=== PATIENT | male | born 1980 | race Caucasian/White ===

== ENCOUNTER 2016-04-20 20:19 | Emergency (ER) | payer OTHER ==
--- NOTE | 2016-04-20 21:47 | ED CLINICAL REPORT ---
Clinical Report - Physicians/Mid Levels [facility] [address] [place] [address] 04/20/2016 20:26 Patient: SELAM MENDES Time Seen: 20:45; upon arrival, initial patient contact, initial documentation, patient care assumed. Arrived- By private vehicle. Historian- patient. HISTORY OF PRESENT ILLNESS Chief Complaint: FOREIGN BODY IN NOSE. Since about 4 months ago or longer and is still present. Location- right nare. No epistaxis, nasal congestion or recent nasal injury. He has a foreign body in the nose. He has had a blood tinged nasal discharge (black). (thinks something got into his nose over 4 mos ago, been sticking a variety of objects into nose attempting to get it out, x2 wks ago blew out black stuff with blood, denies any injury or trauma). Similar symptoms previously: None. Recent medical care: Not recently seen/assessed. REVIEW OF SYSTEMS No fever or difficulty breathing. All systems otherwise negative, except as recorded above. PAST HISTORY See nurses notes. PROBLEMS: Paranoid disorder. Hypertension. Anxiety Reaction. --20:35 Kelvin Flores R.N. ADDITIONAL SURGERIES: Collapsed lung. --20:35 Kelvin Flores R.N. SOCIAL HISTORY Heavy tobacco smoker. Regular alcohol use; consumes beer. History of heavy drug use: marijuana. No recent travel. Is a local resident. FAMILY HISTORY Negative. ADDITIONAL NOTES The nursing notes have been reviewed with agreement regarding the chief complaint, HPI, ROS, PMH and patient medications and allergies. PHYSICAL EXAM Vital Signs: 04/20/2016 20:31 BP: 149/92. HR: 110. RR: 16. O2 saturation: 100%. Temp: 98.1 F. Pain level now: 8/10. Have been reviewed as abnormal and appear to be correct. Hypertensive. Tachycardic. Respiratory rate normal. Temperature normal. Oxygen saturation normal. Appearance: Alert. No acute distress. Eyes: Eyes normal inspection. ENT: Ears normal. Nose abnormal. Nose: Marked right-nare mucosal inflammation. No nasal foreign body. No nasal discharge. Throat: Pharynx normal. Neck: Normal inspection. Neck supple. CVS: Normal heart rate and rhythm. Heart sounds normal. Respiratory: No respiratory distress. Breath sounds normal. Back: Normal inspection. Skin: Skin warm and dry. Normal skin color. No rash. Normal skin turgor. Extremities: Extremities exhibit normal ROM. No lower extremity edema. Neuro: Oriented X 3. No motor deficit. No sensory deficit. PROGRESS AND PROCEDURES Patient counseled in person regarding the patient's stable condition and diagnosis. 21:47. Differential Diagnosis: Other possible considerations: nasal fb, polyp, abscess, tumor. Above considerations are based on history and physical exam. Differential diagnosis was discussed with patient. Disposition: Discharged home in good and unchanged condition (21:47). Condition: good and stable. CLINICAL IMPRESSION (R nare swelling). INSTRUCTIONS Warnings: GENERAL WARNINGS: Return or contact your physician immediately if your condition worsens or changes unexpectedly, if not improving as expected, or if other problems arise. Specifically return if problem worsens. Follow-up: Screening today revealed the patient's blood pressure to be in the hypertensive range. The patient should follow up with a primary care provider for blood pressure management. Understanding of the discharge instructions verbalized by patient. Follow-up with: Sung Aguirre MD, ENT, , [facility], [address] [place] [address], [phone] Follow up in about three days even if well. Call for an appointment. Summary of care provided to patient. (Electronically signed by Nia Becerril A.R.N.P. 04/20/2016 22:28)
--- NOTE | 2016-04-20 21:47 | ED NURSING NOTES ---
Clinical Report - Nurses [facility] [address] [place] [address] 04/20/2016 20:26 Patient: STIVEN MENDES TRIAGE Triage time 20:33. Acuity: LEVEL 4. Chief Complaint: RIGHT NARES FORIEGN BODY and (Stiven says he started feeling like something was in his nose abotu 1-2 weeks ago when he went to long term. He reports he has experienced a sinus infection. He is unable to recall what FB is in his nose. He believes something may have crawled up there. He says discharge from his nose has been "black and bloody." Nose pain is making Stiven feel anxious.). Alert. No acute distress. SEPSIS SCREEN: Sepsis Screen: negative. Negative (no infection suspected/documented). --20:39 Kelvin Flores R.N. 20:31 04/20/16. BP: 149/92 (regular adult cuff) taken on the left arm, via an automated monitor, while sitting. HR: 110 (tachycardic). RR: 16 (regular, unlabored and normal). O2 saturation: 100% on room air. Temp: 98.1 F (oral). Pain level now: 8/10. --20:39 Kelvin Flores R.N. Weight: 83.9 kg stated. Height/Length: 68 inches Per Patient. BMI: 28.1. --20:35 Kelvin Flores R.N. Medications Amitriptyline HCl Oral. BusPIRone HCl Oral. --20:34 Kelvin Flores R.N. Medication/allergy information source: the patient. --20:39 Kelvin Flores R.N. Allergies Penicillin.(rash) (onset hours) --20:34 Kelvin Flores R.N. History Arrived by private vehicle. Historian: patient. Unaccompanied. Onset. (about 2 weeks ago). He has had mild chills. Reports experiencing sweating episodes. He has had mild right-sided ear drainage (clear, watery). He has not had fatigue or weight loss. No fever, sore throat or abdominal pain. Denies muscle aches or poor appetite. Has not been pulling at ears. Treatment WASHER MACHINE: None. PAST MEDICAL HX: Has not received seasonal influenza immunization. SOCIAL HX: Current some days heavy tobacco smoker (cigarette)- 1 pack per day. Alcohol use; consumes two beers occasionally. History of heavy drug use: marijuana. Resides in a house. He lives with a family member. Patient is employed. (Looking for work). The patient has not traveled outside the [place] The patient was exposed to MRSA. ABUSE ASSESSMENT: Abuse assessment: The patient was asked "Do you feel safe in your home?" and "Has anyone hurt you or threatened to hurt you?". No report of abuse. SELF HARM ASSESSMENT: A self harm assessment was performed. The patient answered "no" to the question "Do you have thoughts of harming or killing yourself?" and "Have you recently had thoughts about harming or killing others?". FALL RISK ASSESSMENT: Fall risk assessment completed. No fall risk identified. NUTRITIONAL RISK ASSESSMENT: The nutritional risk assessment revealed no deficiencies. FUNCTIONAL ASSESSMENT: Functional assessment: no impairments noted. LEARNING NEEDS ASSESSMENT: The learning needs assessment revealed no barriers. SKIN INTEGRITY ASSESSMENT: Skin integrity risk assessment completed. No skin integrity risk identified. --20:39 Kelvin Flores R.N. PROBLEMS: Paranoid disorder. Hypertension. Anxiety Reaction. --20:35 Kelvin Flores R.N. ADDITIONAL SURGERIES: Collapsed lung. --20:35 Kelvin Flores R.N. Assessment GENERAL / NEURO / PSYCH: Alert. Oriented X 4. Appears in no acute distress. Vikram Coma Scale: 15- eyes open spontaneously (4); best verbal response- oriented x 4 (5); best motor response- obeys commands (6). Patient appears calm and cooperative. RESPIRATORY: Respirations not labored. SKIN: Skin is warm and dry. --20:39 Kelvin Flores R.N. Interventions ID band on patient. To treatment room. Report given to the primary nurse. BLANCA Driver. --20:39 Kelvin Flores R.N. NURSING PROGRESS NOTES The initial plan of care for this patient has been created This plan of care was discussed with the patient. Reassurance given to the patient. Two patient identifiers checked. Call light placed in reach. Side rails up x 1. Bed placed in lowest position. Brakes of bed on. Patient ready for evaluation- ED physician and CLIPMAN notified. --20:40 Kelvin Flores R.N. DISPOSITION / DISCHARGE 21:55 04/20/16. Condition at departure: stable. No learning barriers present. Discharge instructions provided and reviewed with the patient. Reviewed referral to an ear, nose, and throat specialist (corral boss). Patient verbalized understanding. Written instructions provided in [place]. The patient was discharged by the physician hospital medical assistant. He was discharged home and unaccompanied at time of discharge. He left the Emergency Department ambulatory and via private vehicle. Patient driving. --22:48 Neisha Patterson 21:55 04/20/16. BP: 131/89. HR: 99. RR: 18. O2 saturation: 96% on room air. Temp: deferred. Pain level now: 05/03. --22:48 Neisha Patterson. Locked/Released at 04/20/2016 22:48 by Neisha Patterson,
--- NOTE | 2016-04-20 21:47 | ED NURSING NOTES ---
Clinical Report - Nurses [facility] [address] [place] [address] 04/20/2016 20:26 Patient: STIVEN MENDES TRIAGE Triage time 20:33. Acuity: LEVEL 4. Chief Complaint: RIGHT NARES FORIEGN BODY and (Stiven says he started feeling like something was in his nose abotu 1-2 weeks ago when he went to detention. He reports he has experienced a sinus infection. He is unable to recall what FB is in his nose. He believes something may have crawled up there. He says discharge from his nose has been "black and bloody." Nose pain is making Stiven feel anxious.). Alert. No acute distress. SEPSIS SCREEN: Sepsis Screen: negative. Negative (no infection suspected/documented). --20:39 Kelvin Flores R.N. 20:31 04/20/16. BP: 149/92 (regular adult cuff) taken on the left arm, via an automated monitor, while sitting. HR: 110 (tachycardic). RR: 16 (regular, unlabored and normal). O2 saturation: 100% on room air. Temp: 98.1 F (oral). Pain level now: 8/10. --20:39 Kelvin Flores R.N. Weight: 83.9 kg stated. Height/Length: 68 inches Per Patient. BMI: 28.1. --20:35 Kelvin Flores R.N. Medications Amitriptyline HCl Oral. BusPIRone HCl Oral. --20:34 Kelvin Flores R.N. Medication/allergy information source: the patient. --20:39 Kelvin Flores R.N. Allergies Penicillin.(rash) (onset hours) --20:34 Kelvin Flores R.N. History Arrived by private vehicle. Historian: patient. Unaccompanied. Onset. (about 2 weeks ago). He has had mild chills. Reports experiencing sweating episodes. He has had mild right-sided ear drainage (clear, watery). He has not had fatigue or weight loss. No fever, sore throat or abdominal pain. Denies muscle aches or poor appetite. Has not been pulling at ears. Treatment OTOLARYNGOLOGY NURSE: None. PAST MEDICAL HX: Has not received seasonal influenza immunization. SOCIAL HX: Current some days heavy tobacco smoker (cigarette)- 1 pack per day. Alcohol use; consumes two beers occasionally. History of heavy drug use: marijuana. Resides in a house. He lives with a family member. Patient is employed. (Looking for work). The patient has not traveled outside the [place] The patient was exposed to MRSA. ABUSE ASSESSMENT: Abuse assessment: The patient was asked "Do you feel safe in your home?" and "Has anyone hurt you or threatened to hurt you?". No report of abuse. SELF HARM ASSESSMENT: A self harm assessment was performed. The patient answered "no" to the question "Do you have thoughts of harming or killing yourself?" and "Have you recently had thoughts about harming or killing others?". FALL RISK ASSESSMENT: Fall risk assessment completed. No fall risk identified. NUTRITIONAL RISK ASSESSMENT: The nutritional risk assessment revealed no deficiencies. FUNCTIONAL ASSESSMENT: Functional assessment: no impairments noted. LEARNING NEEDS ASSESSMENT: The learning needs assessment revealed no barriers. SKIN INTEGRITY ASSESSMENT: Skin integrity risk assessment completed. No skin integrity risk identified. --20:39 Kelvin Flores R.N. PROBLEMS: Paranoid disorder. Hypertension. Anxiety Reaction. --20:35 Kelvin Flores R.N. ADDITIONAL SURGERIES: Collapsed lung. --20:35 Kelvin Flores R.N. Assessment GENERAL / NEURO / PSYCH: Alert. Oriented X 4. Appears in no acute distress. Vikram Coma Scale: 15- eyes open spontaneously (4); best verbal response- oriented x 4 (5); best motor response- obeys commands (6). Patient appears calm and cooperative. RESPIRATORY: Respirations not labored. SKIN: Skin is warm and dry. --20:39 Kelvin Flores R.N. Interventions ID band on patient. To treatment room. Report given to the primary nurse. BLANCA Driver. --20:39 Kelvin Flores R.N. NURSING PROGRESS NOTES The initial plan of care for this patient has been created This plan of care was discussed with the patient. Reassurance given to the patient. Two patient identifiers checked. Call light placed in reach. Side rails up x 1. Bed placed in lowest position. Brakes of bed on. Patient ready for evaluation- ED physician and FIGURE MODEL notified. --20:40 Kelvin Flores R.N. DISPOSITION / DISCHARGE 21:55 04/20/16. Condition at departure: stable. No learning barriers present. Discharge instructions provided and reviewed with the patient. Reviewed referral to an ear, nose, and throat specialist (office coordinator). Patient verbalized understanding. Written instructions provided in [place]. The patient was discharged by the physician assistant department manager. He was discharged home and unaccompanied at time of discharge. He left the Emergency Department ambulatory and via private vehicle. Patient driving. --22:48 Neisha Patterson 21:55 04/20/16. BP: 131/89. HR: 99. RR: 18. O2 saturation: 96% on room air. Temp: deferred. Pain level now: 05/03. --22:48 Neisha Patterson. Locked/Released at 04/20/2016 22:48 by Neisha Patterson,
--- NOTE | 2016-04-20 21:47 | ED CLINICAL REPORT ---
Clinical Report - Physicians/Mid Levels [facility] [address] [place] [address] 04/20/2016 20:26 Patient: SELAM MENDES Time Seen: 20:45; upon arrival, initial patient contact, initial documentation, patient care assumed. Arrived- By private vehicle. Historian- patient. HISTORY OF PRESENT ILLNESS Chief Complaint: FOREIGN BODY IN NOSE. Since about 4 months ago or longer and is still present. Location- right nare. No epistaxis, nasal congestion or recent nasal injury. He has a foreign body in the nose. He has had a blood tinged nasal discharge (black). (thinks something got into his nose over 4 mos ago, been sticking a variety of objects into nose attempting to get it out, x2 wks ago blew out black stuff with blood, denies any injury or trauma). Similar symptoms previously: None. Recent medical care: Not recently seen/assessed. REVIEW OF SYSTEMS No fever or difficulty breathing. All systems otherwise negative, except as recorded above. PAST HISTORY See nurses notes. PROBLEMS: Paranoid disorder. Hypertension. Anxiety Reaction. --20:35 Kelvin Flores R.N. ADDITIONAL SURGERIES: Collapsed lung. --20:35 Kelvin Flores R.N. SOCIAL HISTORY Heavy tobacco smoker. Regular alcohol use; consumes beer. History of heavy drug use: marijuana. No recent travel. Is a local resident. FAMILY HISTORY Negative. ADDITIONAL NOTES The nursing notes have been reviewed with agreement regarding the chief complaint, HPI, ROS, PMH and patient medications and allergies. PHYSICAL EXAM Vital Signs: 04/20/2016 20:31 BP: 149/92. HR: 110. RR: 16. O2 saturation: 100%. Temp: 98.1 F. Pain level now: 8/10. Have been reviewed as abnormal and appear to be correct. Hypertensive. Tachycardic. Respiratory rate normal. Temperature normal. Oxygen saturation normal. Appearance: Alert. No acute distress. Eyes: Eyes normal inspection. ENT: Ears normal. Nose abnormal. Nose: Marked right-nare mucosal inflammation. No nasal foreign body. No nasal discharge. Throat: Pharynx normal. Neck: Normal inspection. Neck supple. CVS: Normal heart rate and rhythm. Heart sounds normal. Respiratory: No respiratory distress. Breath sounds normal. Back: Normal inspection. Skin: Skin warm and dry. Normal skin color. No rash. Normal skin turgor. Extremities: Extremities exhibit normal ROM. No lower extremity edema. Neuro: Oriented X 3. No motor deficit. No sensory deficit. PROGRESS AND PROCEDURES Patient counseled in person regarding the patient's stable condition and diagnosis. 21:47. Differential Diagnosis: Other possible considerations: nasal fb, polyp, abscess, tumor. Above considerations are based on history and physical exam. Differential diagnosis was discussed with patient. Disposition: Discharged home in good and unchanged condition (21:47). Condition: good and stable. CLINICAL IMPRESSION (R nare swelling). INSTRUCTIONS Warnings: GENERAL WARNINGS: Return or contact your physician immediately if your condition worsens or changes unexpectedly, if not improving as expected, or if other problems arise. Specifically return if problem worsens. Follow-up: Screening today revealed the patient's blood pressure to be in the hypertensive range. The patient should follow up with a primary care provider for blood pressure management. Understanding of the discharge instructions verbalized by patient. Follow-up with: Sung Aguirre MD, ENT, , [facility], [address] [place] [address], [phone] Follow up in about three days even if well. Call for an appointment. Summary of care provided to patient. (Electronically signed by Nia Becerril A.R.N.P. 04/20/2016 22:28)
--- NOTE | 2016-04-20 22:48 | ED MAR SUMMARY ---
..... Medication Administration Record [facility] [address], [place] [id number] Patient: SELAM MENDES Visit ID: [id number] 35y, M Weight: 83.9 kg Height/Length: 68 in BMI: 28.1 ALLERGIES: Penicillin
--- NOTE | 2016-04-20 22:48 | ED DISCHARGE INSTRUCTIONS ---
Patient: SELAM MENDES General Instructions [facility] VisitID: [id number] [address] [place] [address] 35y, M Registration Date/Time: 04/20/2016 (Haider somers). INSTRUCTIONS Warnings: GENERAL WARNINGS: Return or contact your physician immediately if your condition worsens or changes unexpectedly, if not improving as expected, or if other problems arise. Specifically return if problem worsens. Follow-up: Screening today revealed the patient's blood pressure to be in the hypertensive range. The patient should follow up with a primary care provider for blood pressure management. Understanding of the discharge instructions verbalized by patient. Follow-up with: Sung Aguirre MD, ENT, , [facility], [address] [place] [address], [phone] Follow up in about three days even if well. Call for an appointment. Summary of care provided to patient. (Electronically signed by Nia Becerril A.R.NGaylePGayle 04/20/2016 22:28)
--- NOTE | 2016-04-20 22:48 | ED MED RECONCILIATION SUMMARY ---
Patient: SELAM MENDES Medication Reconciliation Report [facility] VisitID: [id number] [address] [place] [address] 35y, M Registration Date/Time: 04/20/2016 Weight: 83.9 kg Height/Length: 68 in. BMI: 28.1 ALLERGIES: Penicillin The patient's Home Medications are listed below: THE FOLLOWING MEDICATIONS NEED TO BE RECONCILED: Amitriptyline HCl Oral BusPIRone HCl Oral The source(s) of the original Home Medication information: patient The following Medications were given to the patient in the Emergency Department: None. The following Medications were prescribed to the patient: None.
--- NOTE | 2016-04-20 22:48 | ED DISCHARGE INSTRUCTIONS ---
Patient: SELAM MENDES General Instructions [facility] VisitID: [id number] [address] [place] [address] 35y, M Registration Date/Time: 04/20/2016 (Haider somers). INSTRUCTIONS Warnings: GENERAL WARNINGS: Return or contact your physician immediately if your condition worsens or changes unexpectedly, if not improving as expected, or if other problems arise. Specifically return if problem worsens. Follow-up: Screening today revealed the patient's blood pressure to be in the hypertensive range. The patient should follow up with a primary care provider for blood pressure management. Understanding of the discharge instructions verbalized by patient. Follow-up with: Sung Aguirre MD, ENT, , [facility], [address] [place] [address], [phone] Follow up in about three days even if well. Call for an appointment. Summary of care provided to patient. (Electronically signed by Nia Becerril A.R.NGaylePGayle 04/20/2016 22:28)
--- NOTE | 2016-04-20 22:48 | ED MED RECONCILIATION SUMMARY ---
Patient: SELAM MENDES Medication Reconciliation Report [facility] VisitID: [id number] [address] [place] [address] 35y, M Registration Date/Time: 04/20/2016 Weight: 83.9 kg Height/Length: 68 in. BMI: 28.1 ALLERGIES: Penicillin The patient's Home Medications are listed below: THE FOLLOWING MEDICATIONS NEED TO BE RECONCILED: Amitriptyline HCl Oral BusPIRone HCl Oral The source(s) of the original Home Medication information: patient The following Medications were given to the patient in the Emergency Department: None. The following Medications were prescribed to the patient: None.
--- NOTE | 2016-04-20 22:48 | ED MAR SUMMARY ---
..... Medication Administration Record [facility] [address], [place] [id number] Patient: SELAM MENDES Visit ID: [id number] 35y, M Weight: 83.9 kg Height/Length: 68 in BMI: 28.1 ALLERGIES: Penicillin
== END 2016-04-20 21:55 | disposition home or self-care (01) ==
LOC: ED SRH 20:19
DX: R22.0 Localized swelling, mass and lump, head (principal); I10 Essential (primary) hypertension